=== PATIENT | female | born 1965 | race Caucasian/White ===

== ENCOUNTER → 2016-09-14 | Outpatient (CLI) | payer OTHER ==
[~2016-09-14] VITALS: Ht 163.8 cm; Wt 93.4 kg
[~2016-09-14] MED LIST: COLACE 100100 MG/CAP PO; DOVONEX CR60 G2 TP; FIORICET 325 MG1 TA1 PO; FLONASEALLERGY NS; NATURAL IRON65 MG PO; OMEGA-31 SGL PO; OPTIVE SENSITI0.4 ML OU; PAMELOR 25MG25 MG PO; PRESERVISION1 SGL PO; VITAMIN B11000 MCG/M IM; VITAMIN D31000 I1 PO; VOLTAREN GEL 1%1 TU TP; ZANAFLEX2 MG PO; ZYRTEC 10MG10 MG PO
[2016-09-14 15:51] VITALS: BP 116/78
== END ==
LOC: LIGHT
DX: Z98.84 Bariatric surgery status (principal); Z68.34 Body mass index [BMI] 34.0-34.9, adult; Z71.3 Dietary counseling and surveillance

== ENCOUNTER 2016-10-20 07:04 | Day surgery (SDC) | payer OTHER ==
[~2016-10-20] VITALS: Ht 165.1 cm; Wt 93.1 kg
[~2016-10-20 07:04] MED LIST changes: -DOVONEX CR60 G2 TP; -FLONASEALLERGY NS; -OPTIVE SENSITI0.4 ML OU; -PAMELOR 25MG25 MG PO; -VOLTAREN GEL 1%1 TU TP
[2016-10-20 07:23] VITALS: BP 125/90; PULSE 88; TEMP 98.8
[2016-10-20] MEDS ORDERED: PAMELOR 25MG25 MG PO (07:27)
[2016-10-20] MEDS ORDERED: FLONASEALLERGY NS (07:33)
[2016-10-20] MEDS ORDERED: DOVONEX CR60 G2 TP (07:35)
[2016-10-20] MEDS ORDERED: VOLTAREN GEL 1%1 TU TP (07:36)
[2016-10-20] MEDS ORDERED: OPTIVE SENSITI0.4 ML OU (07:38)
[2016-10-20 08:33] VITALS: BP 118/93; PULSE 78; TEMP 98.9
[2016-10-20 08:45] VITALS: BP 113/88; PULSE 75
[2016-10-20 09:00] VITALS: BP 117/82; PULSE 69
[2016-10-20 10:04] VITALS: BP 107/81; PULSE 78
== END 2016-10-20 09:10 | disposition home or self-care (01) ==
LOC: SDCO 07:04
DX: R11.2 Nausea with vomiting, unspecified (principal); G43.909 Migraine, unspecified, not intractable, without status migrainosus; G44.89 Other headache syndrome; Z98.84 Bariatric surgery status; Z87.891 Personal history of nicotine dependence
CPT/HCPCS: OP; J2250; J3010; J7030

== ENCOUNTER → 2016-10-26 | Outpatient (CLI) | payer OTHER ==
[~2016-10-26] VITALS: Ht 165.2 cm; Wt 92.8 kg
[~2016-10-26] MED LIST changes: +DOVONEX CR60 G2 TP; +FLONASEALLERGY NS; +OPTIVE SENSITI0.4 ML OU; +PAMELOR 25MG25 MG PO; +VOLTAREN GEL 1%1 TU TP
[2016-10-26 16:17] VITALS: BP 134/100; PULSE 80
== END ==
LOC: LIGHT 10:49
DX: Z98.84 Bariatric surgery status (principal); Z68.34 Body mass index [BMI] 34.0-34.9, adult; Z71.3 Dietary counseling and surveillance

== ENCOUNTER → 2016-11-26 | Outpatient (CLI) | payer OTHER ==
[~2016-11-26] VITALS: Ht 165.1 cm; Wt 89.1 kg
[~2016-11-26] MED LIST changes: +ADIPEX-P37.5 MG PO
[2016-11-26 08:42] VITALS: BP 112/78; PULSE 60
[2016-12-14 13:33] VITALS: BP 110/74; PULSE 84
== END ==
LOC: LIGHT 08:31
DX: Z98.84 Bariatric surgery status (principal); Z68.33 Body mass index [BMI] 33.0-33.9, adult; Z71.3 Dietary counseling and surveillance

== ENCOUNTER → 2017-07-01 | Outpatient (CLI) | payer OTHER ==
[~2017-07-01] VITALS: Ht 165.1 cm; Wt 91.2 kg
[~2017-07-01] MED LIST changes: +TOPAMAX 25MG25 M1 PO
[2017-07-01 16:09] VITALS: BP 118/80; PULSE 60
== END ==
LOC: LIGHT 14:03
DX: Z98.84 Bariatric surgery status (principal); Z68.33 Body mass index [BMI] 33.0-33.9, adult; Z71.3 Dietary counseling and surveillance
CPT/HCPCS: G0463

== ENCOUNTER → 2019-03-23 | Outpatient (CLI) | payer OTHER ==
[~2019-03-23] VITALS: Ht 165.1 cm; Wt 84.4 kg
[~2019-03-23] MED LIST changes: -TOPAMAX 25MG25 M1 PO; +TOPAMAX50 MG PO
[2019-04-17 12:47] VITALS: BP 116/82; PULSE 60
== END ==
LOC: LIGHT 09:18
DX: Z98.84 Bariatric surgery status (principal)
CPT/HCPCS: G0463

== ENCOUNTER → 2019-09-07 | Outpatient (CLI) | payer OTHER ==
[~2019-09-07] VITALS: Ht 165.1 cm; Wt 90.9 kg
[2019-09-07 15:45] VITALS: BP 138/72; PULSE 84
== END ==
LOC: LIGHT 10:54
DX: E66.8 Other obesity (principal); Z68.33 Body mass index [BMI] 33.0-33.9, adult; Z98.84 Bariatric surgery status; F50.81 Binge eating disorder; M54.5 Low back pain
CPT/HCPCS: G0463

== ENCOUNTER → 2020-04-12 | Outpatient (CLI) | payer OTHER | LOC: COL.RAD | DX: M51.36 Other intervertebral disc degeneration, lumbar region (principal); M51.25 Other intervertebral disc displacement, thoracolumbar region; M51.27 Other intervertebral disc displacement, lumbosacral region; M48.061 Spinal stenosis, lumbar region without neurogenic claudication; M48.07 Spinal stenosis, lumbosacral region; M48.05 Spinal stenosis, thoracolumbar region ==

== ENCOUNTER → 2021-04-28 | Outpatient (CLI) | payer OTHER | LOC: COL.RAD 09:35 | DX: M16.11 Unilateral primary osteoarthritis, right hip (principal) | CPT/HCPCS: J3301; Q9967 ==

== ENCOUNTER 2021-10-11 14:50 | Emergency (ER) | payer OTHER ==
[~2021-10-11] VITALS: Ht 165.1 cm; Wt 104.5 kg
[2021-10-11 15:16] VITALS: TEMP 98.5
[2021-10-11 16:16] LABS: BASO # 0.1 K/mm3 (0.0-0.2); BASO % 0.7 % (0.0-2.0); EOS # 0.4 K/mm3 (0.0-0.7); EOS % 4.3 % (0.0-4.0); GRAN # 5.3 K/mm3 (1.4-6.5); GRAN % 59.7 % (42.2-75.2); HEMATOCRIT 37.1 % (37.0-47.0); HEMOGLOBIN 12.2 g/dl (12.5-16.0); LYMPH # 2.2 K/mm3 (1.2-3.4); LYMPH % 24.5 % (20.0-51.0); MEAN CELL VOLUME 92 fl (80.0-100.0); MEAN CORPUSCULAR HEMOGLOBIN 30 pg (27-31); MEAN CORPUSCULAR HGB CONC 33 g/dl (33.0-37.0); MONO # 0.9 K/mm3 (0.1-0.6); MONO % 9.9 % (1.7-9.3); PLATELET COUNT 474 K/mm3 (130-400); RED BLOOD COUNT 4.04 M/mm3 (4.10-5.30); REDCELL DISTRIBUTION WIDTH-CV 12.4 % (11.5-14.5)
[2021-10-11 16:30] LABS: ALBUMIN 2.9 gm/dL (3.5-5.0); BILIRUBIN,TOTAL 0.2 mg/dL (0.2-1.2); C-REACTIVE PROTEIN 6.42 mg/dL (0.00-0.50); CALCIUM 8.9 mg/dL (8.4-10.2); CREATININE, serum 0.59 mg/dL (0.57-1.11); POTASSIUM 3.8 mmol/L (3.5-4.5); TOTAL PROTEIN 6.6 gm/dL (6.2-8.1)
[2021-10-11 17:44] VITALS: BP 106/83; PULSE 95
== END 2021-10-11 17:51 | disposition home or self-care (01) ==
LOC: COL.ER 14:50
PROVIDERS: Physician Assistant
DX: T81.49XA Infection following a procedure, other surgical site, initial encounter (principal); Z96.641 Presence of right artificial hip joint; Z86.718 Personal history of other venous thrombosis and embolism; Z79.01 Long term (current) use of anticoagulants

== ENCOUNTER → 2022-04-21 | Outpatient (CLI) | payer OTHER | LOC: MHCPAIN 13:03 | DX: M47.897 Other spondylosis, lumbosacral region (principal); M54.17 Radiculopathy, lumbosacral region; M96.1 Postlaminectomy syndrome, not elsewhere classified; M51.36 Other intervertebral disc degeneration, lumbar region | CPT/HCPCS: G0463 ==

== ENCOUNTER → 2022-06-03 | Outpatient (CLI) | payer OTHER | LOC: MHCPAIN 15:10 | DX: M54.17 Radiculopathy, lumbosacral region (principal); M47.896 Other spondylosis, lumbar region; M96.1 Postlaminectomy syndrome, not elsewhere classified | CPT/HCPCS: G0463 ==